=== PATIENT | female | born 1935 | race Caucasian/White ===

== ENCOUNTER 2017-07-31 07:36 | Outpatient (CLI) | payer MEDICARE, OTHER | END 2017-07-31 07:37 | disposition home or self-care (01) | LOC: BICMAMMO 07:36 | PROVIDERS: ATTEND Internal Medicine | DX: Z12.31 Encounter for screening mammogram for malignant neoplasm of breast (principal) | CPT/HCPCS: 77063; G0202; 77067 ==

== ENCOUNTER 2017-12-24 13:35 | Outpatient (CLI) | payer MEDICARE, OTHER | END 2017-12-24 13:36 | disposition home or self-care (01) | LOC: BICULT 13:35 | PROVIDERS: ATTEND Internal Medicine | DX: N18.3 Chronic kidney disease, stage 3 (moderate) (principal); N20.0 Calculus of kidney | CPT/HCPCS: 76770 ==

== ENCOUNTER 2018-12-18 13:51 | Outpatient (CLI) | payer MEDICARE, OTHER ==
--- NOTE | 2018-12-18 15:09 | MMO ---
Bilateral MAMMO Bilat Screen [facility]. CLINICAL HISTORY: Patient is 83 years old and is seen for screening. The patient has the following family history of breast cancer: maternal aunt, at age 70. The patient has no personal history of cancer. The patient has a history of left Stereotatic Biopsy in November, - benign. VIEWS: The views performed were: bilateral craniocaudal with tomosynthesis; bilateral mediolateral oblique with tomosynthesis; and left mediolateral oblique. FILMS COMPARED: The present examination has been compared to prior imaging studies performed at [place] on 06/29/2016 and 07/31/2017. MAMMOGRAM FINDINGS: There are scattered fibroglandular densities. Finding 1: There are stable benign appearing calcifications seen in both breasts. Finding 2: There is a biopsy clip seen in the left breast. There are no suspicious masses, suspicious calcifications, or new areas of architectural distortion. IMPRESSION: THERE IS NO MAMMOGRAPHIC EVIDENCE OF MALIGNANCY. A ROUTINE FOLLOW-UP MAMMOGRAM IN 1 YEAR IS RECOMMENDED. THE RESULTS OF THIS EXAM WERE SENT TO THE PATIENT. ACR BI-RADS Category 2 - Benign finding MAMMOGRAPHY NOTE: 1. A negative mammogram report should not delay a biopsy if a dominant of clinically suspicious mass is present. 2. Approximately 10% to 15% of breast cancers are not detected by mammography. 3. Adenosis and dense breasts may obscure an underlying neoplasm.
--- NOTE | 2018-12-18 15:22 | BD ---
BONE DENSITOMETRY USING DEXA: HISTORY: Postmenopausal screening for osteoporosis. FINDINGS: Lumbar Spine: BMD (g/cm2) L1 1.188 T-Score: 1.8 Z-Score: 4.3 L2 1.259 T-Score: 2.1 Z-Score: 4.8 L3 1.389 T-Score: 2.8 Z-Score: 5.7 L4 1.335 T-Score: 2.5 Z-Score: 5.5 L1-L4 1.300 T-Score: 2.3 Z-Score: 5.1 Femoral Neck: 0.832 T-Score: -0.2 Z-Score: 2.3 Total Femur: 1.018 T-Score: 0.6 Z-Score: 2.8 Impression: Normal bone mineral density. No evidence of osteopenia/osteoporosis. POS: [facility]
== END 2018-12-18 13:52 | disposition home or self-care (01) ==
LOC: BICMAMMO 13:51
PROVIDERS: ATTEND Internal Medicine
DX: Z12.31 Encounter for screening mammogram for malignant neoplasm of breast (principal); Z78.0 Asymptomatic menopausal state; Z80.3 Family history of malignant neoplasm of breast
CPT/HCPCS: 77063; 77067; 77080

== ENCOUNTER 2020-06-09 14:02 | Outpatient (CLI) | payer MEDICARE, OTHER ==
--- NOTE | 2020-06-09 14:27 | MMO ---
Bilateral MAMMO Bilat Screen [facility]. CLINICAL HISTORY: Patient is 85 years old and is seen for screening. The patient has the following family history of breast cancer: maternal aunt, at age 70. The patient has no personal history of cancer. The patient has a history of left Stereotatic Biopsy in November, - benign. VIEWS: The views performed were: bilateral craniocaudal with tomosynthesis and bilateral mediolateral oblique with tomosynthesis. FILMS COMPARED: The present examination has been compared to prior imaging studies performed at 06/29/2016, 07/31/2017 and 12/18/2018. This study has been interpreted with the assistance of computer-aided detection. MAMMOGRAM FINDINGS: There are scattered fibroglandular densities. Finding 1: There are stable benign appearing calcifications seen in both breasts. Finding 2: There is a biopsy clip seen in the left breast. There are no suspicious masses, suspicious calcifications, or new areas of architectural distortion. IMPRESSION: THERE IS NO MAMMOGRAPHIC EVIDENCE OF MALIGNANCY. A ROUTINE FOLLOW-UP MAMMOGRAM IN 1 YEAR IS RECOMMENDED. THE RESULTS OF THIS EXAM WERE SENT TO THE PATIENT. ACR BI-RADS Category 2 - Benign finding MAMMOGRAPHY NOTE: 1. A negative mammogram report should not delay a biopsy if a dominant of clinically suspicious mass is present. 2. Approximately 10% to 15% of breast cancers are not detected by mammography. 3. Adenosis and dense breasts may obscure an underlying neoplasm. Reported by: COCO HUTSON MD Electonically Signed: [id number]
== END 2020-06-09 14:03 | disposition home or self-care (01) ==
LOC: BICMAMMO 14:02
PROVIDERS: ATTEND Internal Medicine
DX: Z12.31 Encounter for screening mammogram for malignant neoplasm of breast (principal); Z80.3 Family history of malignant neoplasm of breast; Z91.89 Other specified personal risk factors, not elsewhere classified
CPT/HCPCS: 77063; 77067

== ENCOUNTER 2020-11-22 09:32 | Outpatient (CLI) | payer MEDICARE ==
[~2020-11-22 09:32] MED LIST: Iopamidol-370 76% 500 ML 1 ML ONE
== END 2020-11-22 09:33 | disposition home or self-care (01) ==
LOC: BICCT 09:32
PROVIDERS: ATTEND Physician Assistant Medical
DX: R10.30 Lower abdominal pain, unspecified (principal); R11.0 Nausea; N28.9 Disorder of kidney and ureter, unspecified
CPT/HCPCS: 74177; 82565; Q9967

== ENCOUNTER 2020-12-05 10:01 | Outpatient (CLI) | payer MEDICARE ==
[2020-12-05] MEDS ORDERED: Iopamidol-370 76% 500 ML 1 ML ONE (13:03)
== END 2020-12-05 10:02 | disposition home or self-care (01) ==
LOC: BICCT 10:01
PROVIDERS: ATTEND Urology
DX: N28.89 Other specified disorders of kidney and ureter (principal); R91.8 Other nonspecific abnormal finding of lung field
CPT/HCPCS: 71046; 74170; Q9967

== ENCOUNTER 2021-01-02 13:58 | Outpatient (CLI) | payer MEDICARE ==
[~2021-01-02 13:58] MED LIST changes: +Iopamidol 370 76% 100 ML VIAL ONE; -Iopamidol-370 76% 500 ML 1 ML ONE
== END 2021-01-02 13:59 | disposition home or self-care (01) ==
LOC: BICCT 13:58
PROVIDERS: ATTEND Urology
DX: R91.1 Solitary pulmonary nodule (principal); N28.89 Other specified disorders of kidney and ureter; R91.8 Other nonspecific abnormal finding of lung field; J84.10 Pulmonary fibrosis, unspecified
CPT/HCPCS: 71260; Q9967

== ENCOUNTER 2021-01-02 14:00 | Outpatient (CLI) | payer MEDICARE | END 2021-01-02 14:01 | disposition home or self-care (01) | LOC: BICMAMMO 14:00 | PROVIDERS: ATTEND Urology | DX: Z13.820 Encounter for screening for osteoporosis (principal); N28.89 Other specified disorders of kidney and ureter | CPT/HCPCS: 77080 ==

== ENCOUNTER 2021-02-06 10:33 | Outpatient (CLI) | payer MEDICARE | END 2021-02-06 10:34 | disposition home or self-care (01) | LOC: NM 10:33 | PROVIDERS: ATTEND Urology | DX: N28.89 Other specified disorders of kidney and ureter (principal) | CPT/HCPCS: 78306; A9503 ==

== ENCOUNTER 2021-06-13 18:37 | Emergency (ER) | payer MEDICARE ==
[2021-06-13 19:31] LABS: #Eosinphils 0.3 thou/uL (0.0-0.7); #Lymphocytes 1.8 thou/uL (1.20-3.40); #Monocytes 0.9 thou/uL (0.11-0.59); #Neutrophils 4.3 thou/uL (1.40-6.50); %Basophils 0.7 % (0.0-1.0); %Eosinophils 3.4 % (0.0-10.0); %Lymphocytes 24.6 % (21.0-51.0); %Monocytes 12.3 % (0.0-10.0); %Neutrophils 59.1 % (42.0-75.0); Hemoglobin 13.7 g/dL (12.0-16.0); Mean Corpuscular HGB CONC 34.8 g/dL (32.0-36.0); Mean Corpuscular Volume 97.5 fL (78.0-98.0); Mean Platelet Volume 8.1 fL (7.4-10.4); Platelet Count 233 thou/uL (130-400); Red Blood Cell (RBC) Count 4.03 mill/uL (4.20-5.40); White Blood Cell (WBC) Count 7.4 thou/uL (4.8-10.8)
[2021-06-13] MEDS ORDERED: hydrALAZINE 20 MG/ML VIAL ONE (19:32)
[2021-06-13 19:49] LABS: Bilirubin Negative (Negative); Blood, Urine Negative (Negative); Clarity Clear (Clear); Glucose, Urine (Dipstick) Normal (Negative); Ketone, Urine Negative (Negative); Leukocyte Negative Leu/uL (Negative); Nitrite Negative (Negative); Protein, Urine (Dipstick) Negative (Neg-Trace); Specific Gravity, Urine 1.007 (1.002-1.036); Urobilinogen Normal mg/dL (Less than 2)
[2021-06-13 19:58] LABS: ALT (SGPT) 19 U/L (8-55); AST (SGOT) 22 U/L (5-34); Albumin 4.1 g/dL (3.4-4.8); Alkaline Phosphatase 103 U/L (40-110); Anion Gap 16 mmol/L (10-20); BUN (Urea Nitrogen) 23 mg/dL (9.8-20.1); Bilirubin, Total 0.4 mg/dL (0.2-1.2); Calc. Creatinine Clearance 0 mL/min (70-130); Calcium 9.3 mg/dL (7.8-10.44); Carbon Dioxide 21 mmol/L (23-31); Chloride 100 mmol/L (98-107); Globulin 3.1 g/dL (2.4-3.5); Glucose 108 mg/dL (83-110); Potassium 4.2 mmol/L (3.5-5.1); Protein, Total 7.2 g/dL (5.8-8.1); Sodium 133 mmol/L (136-145)
== END 2021-06-13 22:58 | disposition home or self-care (01) ==
LOC: ERS 18:37
DX: I10 Essential (primary) hypertension (principal); I47.1 Supraventricular tachycardia; Z79.899 Other long term (current) drug therapy
CPT/HCPCS: 36415; 71045; 80053; 81003; 83880; 84484; 85025; 93005; 94760; 96374; J0360

== ENCOUNTER 2021-08-28 12:23 | Outpatient (CLI) | payer MEDICARE | END 2021-08-28 12:24 | disposition home or self-care (01) | LOC: BICCT 12:23 | PROVIDERS: ATTEND Urology | DX: N28.89 Other specified disorders of kidney and ureter (principal) | CPT/HCPCS: 74170; 82565 ==

== ENCOUNTER 2021-09-04 10:42 | Outpatient (CLI) | payer MEDICARE | END 2021-09-04 10:43 | disposition home or self-care (01) | LOC: LABBT 10:42 | PROVIDERS: ATTEND Urology | DX: Z01.818 Encounter for other preprocedural examination (principal); I12.9 Hypertensive chronic kidney disease with stage 1 through stage 4 chronic kidney disease, or unspecified chronic kidney disease; N18.31 Chronic kidney disease, stage 3a; N28.89 Other specified disorders of kidney and ureter; R54 Age-related physical debility; R41.3 Other amnesia; H81.03 Meniere's disease, bilateral; Z20.822 Contact with and (suspected) exposure to COVID-19 | CPT/HCPCS: 71046; 80048; 81001; 85027; 85610; 85730; 86850; 86900; 86901; 87086; 93005; U0003; U0005; 93010 ==

== ENCOUNTER 2021-09-07 05:58 | Observation (INO) | payer MEDICARE ==
[2021-08-30 12:24] VITALS: BMI 26.6
[2021-09-04 13:33] LABS: Bilirubin Neg (Negative); Blood, Urine Negative (Negative); Clarity Clear (Clear); Glucose, Urine (Dipstick) Normal (Negative); Ketone, Urine Negative (Negative); Leukocyte Negative (Negative); Nitrite Negative (Negative); Protein, Urine (Dipstick) Negative (Neg-Trace); Specific Gravity, Urine 1.005 (1.002-1.036); Urobilinogen Normal mg/dL (Less than 2)
[2021-09-04 13:38] LABS: Hemoglobin 13.6 g/dL (12.0-15.5); Mean Corpuscular HGB CONC 32.3 g/dL (32.0-36.0); Mean Corpuscular Hemoglobin 31.3 pg (27.0-33.0); Mean Corpuscular Volume 96.8 fl (81.6-98.3); Mean Platelet Volume 11.4 fl (7.4-10.4); Platelet Count 265 10x3/uL (150-450); RBC Distribution Width 12.4 % (11.5-14.5); Red Blood Cell (RBC) Count 4.35 10x6/uL (3.90-5.03); White Blood Cell (WBC) Count 6.5 10x3/uL (3.5-10.5)
[2021-09-04 13:51] LABS: PTT 27.1 sec (22.0-33.0); Prothrombin Time 10.9 sec (9.5-12.1)
[2021-09-04 13:56] LABS: Bacteria/HPF 2+ HPF (None Seen); RBC/HPF None Seen HPF (0-3); Squamous Epithelial 0-3 HPF (0-3)
[2021-09-04 13:57] LABS: WBC/HPF 0-3 HPF (0-3)
[2021-09-04 14:12] LABS: Chloride 98 mmol/L (98-107); Potassium 4.5 mmol/L (3.5-5.1); Sodium 133 mmol/L (136-145)
[2021-09-04 14:31] LABS: Anion Gap 14 mmol/L (10-20); BUN (Urea Nitrogen) 20 mg/dL (9.8-20.1); Calc. Creatinine Clearance 0 mL/min (70-130); Calcium 9.3 mg/dL (7.8-10.44); Carbon Dioxide 25 mmol/L (23-31); Glucose 78 mg/dL (83-110)
[2021-09-05 08:58] LABS: SARS-CoV-2 PCR by NAA Not Detected (NotDetected)
[2021-09-07] MEDS ORDERED: EPINEPHrine 1 MG/ML AMP ONE (06:40)
[2021-09-07] MEDS ORDERED: Bupivacaine 0.25% HCL 30 ML VIAL ONE (06:40)
[2021-09-07] MEDS ORDERED: Fentanyl 100 MCG/2 ML VIAL ONE ×3 (07:08→11:12)
[2021-09-07] MEDS ORDERED: HYDROmorphone 0.5 MG/0.5 ML SYRINGE ONE (07:09)
[2021-09-07] MEDS ORDERED: Lidocaine 1% MPF 2 ML VIAL ONE (07:16)
[2021-09-07] MEDS ORDERED: Ketamine 50 MG/ML (10ML VIAL) ONE (07:24)
[2021-09-07] MEDS ORDERED: Phenylephrine 10 MG/ML VIAL ONE (07:24)
[2021-09-07] MEDS ORDERED: CEFAZOLIN 1 GM VIAL ONE (07:26)
[2021-09-07] MEDS ORDERED: SUGAMMADEX SODIUM 200 MG/2 ML VIAL ONE (07:31)
[2021-09-07] MEDS ORDERED: Dexamethasone 20 MG/5 ML VIAL ONE (07:40)
[2021-09-07] MEDS ORDERED: Glycopyrrolate 0.2 MG/ML 5 ML SYRINGE ONE (07:40)
[2021-09-07] MEDS ORDERED: Ondansetron PF 4 MG/2 ML Vial ONE (07:40)
[2021-09-07] MEDS ORDERED: PROPOFOL 200 MG/20 ML VIAL ONE (07:40)
[2021-09-07] MEDS ORDERED: Rocuronium Bromide 10 MG/ML (10ML VIAL) ONE (07:40)
[2021-09-07] MEDS ORDERED: Lidocaine 1% PF 5 ML VIAL ONE (07:40)
[2021-09-07] MEDS ORDERED: HYDROcodone/Acetaminophen 5/325 mg Tablet PO PRN (10:24)
[2021-09-07] MEDS ORDERED: Morphine 4 MG/ML VIAL SLOW IVP PRN ×2 (10:24→12:19)
[2021-09-07] MEDS ORDERED: diphenhydrAMINE 25 MG CAP PO PRN (10:24)
[2021-09-07] MEDS ORDERED: Ondansetron PF 4 MG/2 ML Vial IVP PRN (10:24)
[2021-09-07] MEDS ORDERED: hydrALAZINE 20 MG/ML VIAL SLOW IVP PRN (10:24)
[2021-09-07] MEDS ORDERED: Bisacodyl 10 MG SUPP PR PRN (10:24)
[2021-09-07] MEDS ORDERED: Acetaminophen 500 MG TAB PO PRN (10:24)
[2021-09-07] MEDS ORDERED: Dicyclomine 10 MG CAP PO PRN (10:27)
[2021-09-07] MEDS ORDERED: Sodium Chloride 0.9% 1,000 ML IV SCH (10:30)
[2021-09-07] MEDS ORDERED: Promethazine HCl 25 MG/ML VIAL IVPB PRN (10:49)
[2021-09-07] MEDS ORDERED: Promethazine HCl 25 MG/ML VIAL IM PRN (10:49)
[2021-09-07] MEDS ORDERED: Ondansetron HCl/PF 4 MG/2 ML Vial IVP PRN (10:49)
[2021-09-07] MEDS ORDERED: HYDROmorphone 2 MG/ML VIAL SLOW IVP PRN (10:54)
[2021-09-07] MEDS: Dronedarone HCl 400 MG TAB PO SCH (17:00)
[2021-09-07] MEDS: ceFAZolin 1 GM/D5W 1 GM in Premix Bag 1 BAG IVPB SCH (19:03)
[2021-09-07] MEDS: Carvedilol 6.25 MG TAB PO SCH (21:00)
[2021-09-07] MEDS: hydrALAZINE 10 MG TAB PO SCH (21:03)
[2021-09-07] MEDS: Docusate 100 MG CAP PO SCH (21:04)
[2021-09-08] MEDS: ceFAZolin 1 GM/D5W 1 GM in Premix Bag 1 BAG IVPB SCH ×2 (00:34→10:51)
[2021-09-08] MEDS: HYDROcodone/Acetaminophen 5/325 mg Tablet PO PRN ×3 (00:39→20:15)
[2021-09-08] MEDS: Levothyroxine Sodium 112 MCG TAB PO SCH (05:40)
[2021-09-08 08:20] LABS: Hemoglobin 11.9 g/dL (12.0-16.0); Mean Corpuscular HGB CONC 33.6 g/dL (32.0-36.0); Mean Corpuscular Hemoglobin 32.9 pg (27.0-31.0); Mean Corpuscular Volume 97.9 fL (78.0-98.0); Mean Platelet Volume 8.2 fL (7.4-10.4); Platelet Count 196 thou/uL (130-400); RBC Distribution Width 11.7 % (11.5-14.5); Red Blood Cell (RBC) Count 3.63 mill/uL (4.20-5.40); White Blood Cell (WBC) Count 15.7 thou/uL (4.8-10.8)
[2021-09-08 08:42] LABS: Anion Gap 16 mmol/L (10-20); BUN (Urea Nitrogen) 20 mg/dL (9.8-20.1); Calc. Creatinine Clearance 38 mL/min (70-130); Calcium 8.3 mg/dL (7.8-10.44); Carbon Dioxide 19 mmol/L (23-31); Chloride 97 mmol/L (98-107); Glucose 104 mg/dL (83-110); Potassium 4.6 mmol/L (3.5-5.1); Sodium 127 mmol/L (136-145)
[2021-09-08] MEDS: Carvedilol 6.25 MG TAB PO SCH ×2 (09:05→18:23)
[2021-09-08] MEDS: Docusate 100 MG CAP PO SCH ×2 (09:07→18:23)
[2021-09-08] MEDS: hydrALAZINE 10 MG TAB PO SCH ×2 (09:07→18:24)
[2021-09-08] MEDS: Dronedarone HCl 400 MG TAB PO SCH ×2 (09:07→18:23)
[2021-09-08] MEDS ORDERED: CEFAZOLIN 1 GM in Sodium Chloride 0.9% 100 ML IVPB SCH (09:30)
[2021-09-08] MEDS ORDERED: ceFAZolin 1 GM/D5W 1 GM in Premix Bag 1 BAG IVPB SCH (10:00)
[2021-09-08 10:20] LABS: Band 22 % (5-11); Lymphocytes 8 % (21-51); MDiff Complete? YES; Monocytes 11 % (0-10); Neutrophil 58 % (42-75); Reactive Lymphocytes 1 % (0-10)
[2021-09-08] MEDS: IRBESARTAN 300 MG PO SCH ×2 (22:05→22:25)
[2021-09-09] MEDS: HYDROcodone/Acetaminophen 5/325 mg Tablet PO PRN ×2 (00:13→04:00)
[2021-09-09] MEDS: Levothyroxine Sodium 112 MCG TAB PO SCH (04:00)
[2021-09-09] MEDS: Carvedilol 6.25 MG TAB PO SCH (08:25)
[2021-09-09] MEDS: Dronedarone HCl 400 MG TAB PO SCH (08:25)
[2021-09-09] MEDS: Docusate 100 MG CAP PO SCH (08:30)
[2021-09-09] MEDS: hydrALAZINE 10 MG TAB PO SCH (08:50)
[2021-09-09 12:12] VITALS: BP 161/74; TEMP 98.2
== END 2021-09-09 14:20 | disposition home or self-care (01) ==
LOC: SDC 05:58 → SJJU 10:30
PROVIDERS: ADMIT Urology; ATTEND Urology
PROC: 0T5 Urinary System, Destruction (ICD-10-PCS; principal; 2021-09-07)
DX: D49.511 Neoplasm of unspecified behavior of right kidney (principal); M19.90 Unspecified osteoarthritis, unspecified site; N18.9 Chronic kidney disease, unspecified; Z79.899 Other long term (current) drug therapy; Z88.1 Allergy status to other antibiotic agents; Z88.5 Allergy status to narcotic agent; Z88.6 Allergy status to analgesic agent; Z88.8 Allergy status to other drugs, medicaments and biological substances; Z20.822 Contact with and (suspected) exposure to COVID-19
CPT/HCPCS: 50542; 71045; 80048 ×2; 81001; 85025; 85027; 85610; 85730; 86850; 86900; 86901; 87086; 96365; 96376 ×2; C1713; C2613; G0378 ×3; U0003; U0005; 36415; 88305; J0171; J0690; J1100; J1170; J1642; J2370; J2405; J2704; J3010; J7050; S0020

== ENCOUNTER 2022-03-13 10:20 | Outpatient (CLI) | payer OTHER ==
[~2022-03-13 10:20] MED LIST changes: -Iopamidol 370 76% 100 ML VIAL ONE; +Iopamidol-370 76% 500 ML 1 ML ONE
== END 2022-03-13 10:21 | disposition home or self-care (01) ==
LOC: BICCT 10:20
PROVIDERS: ATTEND Urology
DX: C64.1 Malignant neoplasm of right kidney, except renal pelvis (principal)
CPT/HCPCS: 71046; 74170; Q9967

== ENCOUNTER 2022-09-20 23:29 | Inpatient (IN) | payer OTHER ==
[2022-09-21] MEDS ORDERED: cefTRIAXone\\ROCEPHIN 1 GM VIAL ONE (00:33)
[2022-09-21] MEDS ORDERED: Dexamethasone 10 MG/ML VIAL ONE (00:33)
[2022-09-21] MEDS ORDERED: Ondansetron PF 4 MG/2 ML Vial ONE (00:52)
[2022-09-21 01:08] LABS: #Lymphocytes 1.5 thou/uL (1.20-3.40); #Monocytes 0.6 thou/uL (0.11-0.59); #Neutrophils 6.4 thou/uL (1.40-6.50); %Basophils 0.3 % (0.0-1.0); %Eosinophils 0.5 % (0.0-10.0); %Lymphocytes 17.3 % (21.0-51.0); %Monocytes 7.4 % (0.0-10.0); %Neutrophils 74.4 % (42.0-75.0); Hemoglobin 13.3 g/dL (12.0-16.0); Mean Corpuscular HGB CONC 34.8 g/dL (32.0-36.0); Mean Corpuscular Hemoglobin 33.5 pg (27.0-31.0); Mean Corpuscular Volume 96.1 fl (78.0-98.0); Mean Platelet Volume 8.6 fL (7.4-10.4); Platelet Count 219 10x3/uL (130-400); RBC Distribution Width 11.7 % (11.5-14.5); Red Blood Cell (RBC) Count 3.98 mill/uL (4.20-5.40); White Blood Cell (WBC) Count 8.6 10x3/uL (4.8-10.8)
[2022-09-21 01:20] LABS: PTT 33.2 sec (22.9-36.1); Prothrombin Time 13.3 sec (12.0-14.7)
[2022-09-21] MEDS ORDERED: Ipratropium/Albuterol 3 ML NEB ONE (01:23)
[2022-09-21 01:31] LABS: ALT (SGPT) 25 U/L (8-55); AST (SGOT) 25 U/L (5-34); Albumin 3.9 g/dL (3.4-4.8); Alkaline Phosphatase 86 U/L (40-110); Anion Gap 13 mmol/L (10-20); BUN (Urea Nitrogen) 22 mg/dL (9.8-20.1); Bilirubin, Total 0.7 mg/dL (0.2-1.2); Calc. Creatinine Clearance 0 mL/min (70-130); Calcium 8.3 mg/dL (7.8-10.44); Carbon Dioxide 20 mmol/L (23-31); Chloride 87 mmol/L (98-107); Estimated GFR 57; Globulin 2.8 g/dL (2.4-3.5); Glucose 147 mg/dL (83-110); Lipase 17 U/L (8-78); Magnesium 1.9 mg/dL (1.6-2.6); Potassium 3.9 mmol/L (3.5-5.1); Protein, Total 6.7 g/dL (5.8-8.1)
[2022-09-21 01:37] LABS: Sodium 116 mmol/L (136-145)
[2022-09-21] MEDS ORDERED: Acetaminophen 325 MG TAB PO PRN (02:15)
[2022-09-21] MEDS ORDERED: Ondansetron ODT 4 MG TAB SL PRN (02:15)
[2022-09-21] MEDS ORDERED: Sodium Chloride 0.9% 1,000 ML IV SCH (02:15)
[2022-09-21] MEDS ORDERED: Ondansetron PF 4 MG/2 ML Vial IVP PRN (02:15)
[2022-09-21] MEDS ORDERED: Benzonatate 100 MG CAP PO PRN (02:30)
[2022-09-21 02:35] LABS: Anion Gap 14 mmol/L (10-20); BUN (Urea Nitrogen) 21 mg/dL (9.8-20.1); Calc. Creatinine Clearance 0 mL/min (70-130); Calcium 8.1 mg/dL (7.8-10.44); Carbon Dioxide 17 mmol/L (23-31); Chloride 90 mmol/L (98-107); Estimated GFR 61; Glucose 135 mg/dL (83-110); Potassium 4.2 mmol/L (3.5-5.1)
[2022-09-21 02:38] LABS: Sodium 117 mmol/L (136-145)
[2022-09-21] MEDS ORDERED: Pharmacy to Dose REMDESIVIR IVPB PRN (02:46)
[2022-09-21] MEDS ORDERED: Furosemide 20 MG/2 ML VIAL SLOW IVP SCH ×3 (03:45→14:00)
[2022-09-21] MEDS ORDERED: Albuterol 200 PUFF (6.7GM INHALER) INH PRN (04:30)
[2022-09-21 04:31] LABS: Bacteria/HPF None Seen HPF (None Seen); Bilirubin Negative (Negative); Blood, Urine Negative (Negative); Clarity Clear (Clear); Glucose, Urine (Dipstick) Normal (Negative); Ketone, Urine Negative (Negative); Leukocyte Negative Leu/uL (Negative); Nitrite Negative (Negative); Protein, Urine (Dipstick) 30 mg/dL (Neg-Trace); RBC/HPF 0-3 HPF (0-3); Specific Gravity, Urine 1.023 (1.002-1.036); Squamous Epithelial None Seen HPF (0-3); Urobilinogen Normal mg/dL (Less than 2); WBC/HPF 0-3 HPF (0-3)
[2022-09-21 04:35] LABS: #Lymphocytes 1.1 thou/uL (1.20-3.40); #Monocytes 0.4 thou/uL (0.11-0.59); #Neutrophils 12.2 thou/uL (1.40-6.50); %Basophils 0.2 % (0.0-1.0); %Eosinophils 0.2 % (0.0-10.0); %Lymphocytes 7.8 % (21.0-51.0); %Monocytes 2.7 % (0.0-10.0); %Neutrophils 89.1 % (42.0-75.0); Hemoglobin 14.4 g/dL (12.0-16.0); Mean Corpuscular HGB CONC 33.8 g/dL (32.0-36.0); Mean Corpuscular Hemoglobin 32.6 pg (27.0-31.0); Mean Corpuscular Volume 96.5 fl (78.0-98.0); Mean Platelet Volume 8.5 fL (7.4-10.4); Platelet Count 244 10x3/uL (130-400); RBC Distribution Width 11.9 % (11.5-14.5); Red Blood Cell (RBC) Count 4.41 mill/uL (4.20-5.40); White Blood Cell (WBC) Count 13.7 10x3/uL (4.8-10.8)
[2022-09-21 04:56] LABS: Anion Gap 15 mmol/L (10-20); BUN (Urea Nitrogen) 19 mg/dL (9.8-20.1); Calc. Creatinine Clearance 47 mL/min (70-130); Calcium 8.5 mg/dL (7.8-10.44); Carbon Dioxide 19 mmol/L (23-31); Chloride 85 mmol/L (98-107); Estimated GFR 61; Glucose 169 mg/dL (83-110); Magnesium 1.8 mg/dL (1.6-2.6)
[2022-09-21] MEDS ORDERED: REMDESIVIR 200 MG in Sodium Chloride 0.9% 250 ML 210 ML IV SCH (05:00)
[2022-09-21] MEDS ORDERED: Ipratropium/Albuterol 3 ML NEB NEB SCH (05:00)
[2022-09-21 05:02] LABS: Sodium 115 mmol/L (136-145)
[2022-09-21] MEDS ORDERED: Dexamethasone 4 mg/ml Vial SLOW IVP SCH (09:00)
[2022-09-21 09:20] LABS: SARS-CoV-2 NAA Rapid Test DETECTED (NotDetected)
[2022-09-21 09:38] LABS: Free T4 (Free Thyroxine) 1.34 ng/dL (0.70-1.48)
[2022-09-21 09:46] LABS: Anion Gap 22 mmol/L (10-20); BUN (Urea Nitrogen) 18 mg/dL (9.8-20.1); Calc. Creatinine Clearance 49 mL/min (70-130); Calcium 8.4 mg/dL (7.8-10.44); Carbon Dioxide 14 mmol/L (23-31); Chloride 87 mmol/L (98-107); Estimated GFR 54; Glucose 129 mg/dL (83-110); Potassium 4.7 mmol/L (3.5-5.1); Sodium 118 mmol/L (136-145)
[2022-09-21] MEDS: Dronedarone HCl 400 MG TAB PO SCH ×2 (10:54→17:14)
[2022-09-21] MEDS: Zinc Sulfate 220 MG CAP PO SCH (10:54)
[2022-09-21] MEDS: Ascorbic Acid 500 mg Chewable Tablet PO SCH (10:54)
[2022-09-21] MEDS: guaiFENesin/DM ER PO SCH ×2 (10:55→20:10)
[2022-09-21] MEDS: Dexamethasone 10 MG/ML VIAL SLOW IVP SCH (12:48)
[2022-09-21 17:43] LABS: Anion Gap 16 mmol/L (10-20); BUN (Urea Nitrogen) 21 mg/dL (9.8-20.1); Calc. Creatinine Clearance 42 mL/min (70-130); Calcium 8.4 mg/dL (7.8-10.44); Carbon Dioxide 19 mmol/L (23-31); Chloride 86 mmol/L (98-107); Estimated GFR 45; Glucose 148 mg/dL (83-110); Potassium 4.3 mmol/L (3.5-5.1); Sodium 117 mmol/L (136-145)
[2022-09-21] MEDS: Doxycycline 100 MG CAP PO SCH (20:09)
[2022-09-22 01:05] LABS: Anion Gap 19 mmol/L (10-20); BUN (Urea Nitrogen) 28 mg/dL (9.8-20.1); Calc. Creatinine Clearance 40 mL/min (70-130); Calcium 8.7 mg/dL (7.8-10.44); Carbon Dioxide 17 mmol/L (23-31); Chloride 89 mmol/L (98-107); Estimated GFR 42; Glucose 146 mg/dL (83-110); Potassium 4.6 mmol/L (3.5-5.1); Sodium 120 mmol/L (136-145)
[2022-09-22] MEDS: Dexamethasone 10 MG/ML VIAL SLOW IVP SCH ×2 (01:42→12:48)
[2022-09-22] MEDS: cefTRIAXone\\ROCEPHIN 1 GM in Sodium Chloride 0.9% 100 ML IVPB SCH (01:42)
[2022-09-22 05:05] LABS: #Lymphocytes 1.2 thou/uL (1.20-3.40); #Monocytes 0.5 thou/uL (0.11-0.59); #Neutrophils 11.4 thou/uL (1.40-6.50); %Basophils 0.1 % (0.0-1.0); %Eosinophils 0.1 % (0.0-10.0); %Lymphocytes 9.2 % (21.0-51.0); %Monocytes 3.5 % (0.0-10.0); %Neutrophils 87.2 % (42.0-75.0); Hemoglobin 12.4 g/dL (12.0-16.0); Mean Corpuscular HGB CONC 34.1 g/dL (32.0-36.0); Mean Corpuscular Hemoglobin 32.7 pg (27.0-31.0); Mean Platelet Volume 8.3 fL (7.4-10.4); Platelet Count 201 10x3/uL (130-400); RBC Distribution Width 11.6 % (11.5-14.5); Red Blood Cell (RBC) Count 3.79 mill/uL (4.20-5.40)
[2022-09-22 06:02] LABS: Anion Gap 15 mmol/L (10-20); BUN (Urea Nitrogen) 27 mg/dL (9.8-20.1); Calc. Creatinine Clearance 46 mL/min (70-130); Calcium 8.4 mg/dL (7.8-10.44); Carbon Dioxide 21 mmol/L (23-31); Chloride 87 mmol/L (98-107); Estimated GFR 50; Glucose 144 mg/dL (83-110); Magnesium 1.8 mg/dL (1.6-2.6); Potassium 3.8 mmol/L (3.5-5.1)
[2022-09-22 06:09] LABS: Sodium 119 mmol/L (136-145)
[2022-09-22] MEDS: Levothyroxine Sodium 75 MCG TAB PO SCH (06:26)
[2022-09-22] MEDS: Zinc Sulfate 220 MG CAP PO SCH (08:33)
[2022-09-22] MEDS: Dronedarone HCl 400 MG TAB PO SCH ×2 (08:33→17:46)
[2022-09-22] MEDS: Ascorbic Acid 500 mg Chewable Tablet PO SCH (08:33)
[2022-09-22] MEDS: Doxycycline 100 MG CAP PO SCH ×2 (08:33→19:57)
[2022-09-22] MEDS: guaiFENesin/DM ER PO SCH ×2 (08:34→19:57)
[2022-09-22] MEDS ORDERED: Levothyroxine Sodium 112 MCG TAB PO SCH (09:00)
[2022-09-22] MEDS: REMDESIVIR 100 MG in Sodium Chloride 0.9% 250 ML 230 ML IV SCH (09:02)
[2022-09-22 09:54] LABS: Anion Gap 14 mmol/L (10-20); BUN (Urea Nitrogen) 27 mg/dL (9.8-20.1); Calc. Creatinine Clearance 45 mL/min (70-130); Calcium 8.7 mg/dL (7.8-10.44); Carbon Dioxide 25 mmol/L (23-31); Chloride 86 mmol/L (98-107); Estimated GFR 49; Glucose 142 mg/dL (83-110); Potassium 3.7 mmol/L (3.5-5.1); Sodium 121 mmol/L (136-145)
[2022-09-22 13:48] LABS: AST (SGOT) 29 U/L (5-34)
[2022-09-22 13:49] LABS: ALT (SGPT) 28 U/L (8-55)
[2022-09-22 17:34] LABS: Anion Gap 13 mmol/L (10-20); BUN (Urea Nitrogen) 32 mg/dL (9.8-20.1); Calc. Creatinine Clearance 45 mL/min (70-130); Calcium 8.2 mg/dL (7.8-10.44); Carbon Dioxide 25 mmol/L (23-31); Chloride 86 mmol/L (98-107); Estimated GFR 49; Glucose 137 mg/dL (83-110); Potassium 3.7 mmol/L (3.5-5.1); Sodium 120 mmol/L (136-145)
[2022-09-23] MEDS: cefTRIAXone\\ROCEPHIN 1 GM in Sodium Chloride 0.9% 100 ML IVPB SCH (01:16)
[2022-09-23] MEDS: Dexamethasone 10 MG/ML VIAL SLOW IVP SCH ×2 (01:16→12:13)
[2022-09-23] MEDS: Levothyroxine Sodium 75 MCG TAB PO SCH (05:50)
[2022-09-23 06:06] LABS: Anion Gap 15 mmol/L (10-20); BUN (Urea Nitrogen) 34 mg/dL (9.8-20.1); Calc. Creatinine Clearance 51 mL/min (70-130); Calcium 8.2 mg/dL (7.8-10.44); Carbon Dioxide 23 mmol/L (23-31); Chloride 87 mmol/L (98-107); Estimated GFR 58; Glucose 140 mg/dL (83-110); Magnesium 1.9 mg/dL (1.6-2.6); Potassium 3.7 mmol/L (3.5-5.1); Sodium 121 mmol/L (136-145)
[2022-09-23 06:08] LABS: ALT (SGPT) 37 U/L (8-55); AST (SGOT) 36 U/L (5-34)
[2022-09-23 06:55] LABS: Band 5 % (5-11); Lymphocytes 2 % (21-51); MDiff Complete? YES; Mean Corpuscular Hemoglobin 34.7 pg (27.0-31.0); Mean Corpuscular Volume 96.5 fl (78.0-98.0); Mean Platelet Volume 9.7 fL (7.4-10.4); Monocytes 12 % (0-10); Neutrophil 81 % (42-75); Platelet Count 155 10x3/uL (130-400); Platelet Morphology Comment Appears Adequate; RBC Distribution Width 11.9 % (11.5-14.5); RBC Morphology Normal; Red Blood Cell (RBC) Count 3.45 mill/uL (4.20-5.40); White Blood Cell (WBC) Count 15.8 10x3/uL (4.8-10.8)
[2022-09-23] MEDS: Dronedarone HCl 400 MG TAB PO SCH ×2 (08:33→16:12)
[2022-09-23] MEDS: Ascorbic Acid 500 mg Chewable Tablet PO SCH (08:33)
[2022-09-23] MEDS: REMDESIVIR 100 MG in Sodium Chloride 0.9% 250 ML 230 ML IV SCH (08:33)
[2022-09-23] MEDS: guaiFENesin/DM ER PO SCH ×2 (08:34→21:04)
[2022-09-23] MEDS: Zinc Sulfate 220 MG CAP PO SCH (08:34)
[2022-09-23] MEDS: Doxycycline 100 MG CAP PO SCH ×2 (08:34→21:04)
[2022-09-23 12:43] LABS: #Lymphocytes 0.9 thou/uL (1.20-3.40); #Monocytes 0.8 thou/uL (0.11-0.59); #Neutrophils 16.8 thou/uL (1.40-6.50); %Basophils 0.1 % (0.0-1.0); %Eosinophils 0.1 % (0.0-10.0); %Lymphocytes 4.8 % (21.0-51.0); %Monocytes 4.3 % (0.0-10.0); %Neutrophils 90.8 % (42.0-75.0); Hemoglobin 12.3 g/dL (12.0-16.0); Mean Corpuscular HGB CONC 33.7 g/dL (32.0-36.0); Mean Corpuscular Hemoglobin 32.3 pg (27.0-31.0); Mean Platelet Volume 8.2 fL (7.4-10.4); Platelet Count 228 10x3/uL (130-400); RBC Distribution Width 11.9 % (11.5-14.5); Red Blood Cell (RBC) Count 3.81 mill/uL (4.20-5.40); White Blood Cell (WBC) Count 18.5 10x3/uL (4.8-10.8)
[2022-09-23 13:00] LABS: Anion Gap 16 mmol/L (10-20); BUN (Urea Nitrogen) 33 mg/dL (9.8-20.1); Calc. Creatinine Clearance 48 mL/min (70-130); Calcium 8.3 mg/dL (7.8-10.44); Carbon Dioxide 21 mmol/L (23-31); Chloride 87 mmol/L (98-107); Estimated GFR 56; Glucose 141 mg/dL (83-110); Potassium 3.9 mmol/L (3.5-5.1); Sodium 120 mmol/L (136-145)
[2022-09-24] MEDS: cefTRIAXone\\ROCEPHIN 1 GM in Sodium Chloride 0.9% 100 ML IVPB SCH (02:02)
[2022-09-24] MEDS: Dexamethasone 10 MG/ML VIAL SLOW IVP SCH (02:02)
[2022-09-24 05:31] LABS: Anion Gap 13 mmol/L (10-20); BUN (Urea Nitrogen) 37 mg/dL (9.8-20.1); Calc. Creatinine Clearance 54 mL/min (70-130); Calcium 7.9 mg/dL (7.8-10.44); Carbon Dioxide 24 mmol/L (23-31); Chloride 90 mmol/L (98-107); Estimated GFR 64; Glucose 141 mg/dL (83-110); Potassium 3.5 mmol/L (3.5-5.1); Sodium 123 mmol/L (136-145)
[2022-09-24 05:32] LABS: ALT (SGPT) 40 U/L (8-55)
[2022-09-24 05:33] LABS: AST (SGOT) 25 U/L (5-34)
[2022-09-24] MEDS: Levothyroxine Sodium 75 MCG TAB PO SCH (05:47)
[2022-09-24] MEDS: Ascorbic Acid 500 mg Chewable Tablet PO SCH (08:48)
[2022-09-24] MEDS: Dronedarone HCl 400 MG TAB PO SCH ×2 (08:48→18:21)
[2022-09-24] MEDS: Doxycycline 100 MG CAP PO SCH ×2 (08:48→21:53)
[2022-09-24] MEDS: Zinc Sulfate 220 MG CAP PO SCH (08:48)
[2022-09-24] MEDS: REMDESIVIR 100 MG in Sodium Chloride 0.9% 250 ML 230 ML IV SCH (08:49)
[2022-09-24] MEDS: guaiFENesin/DM ER PO SCH (09:22)
[2022-09-25] MEDS: cefTRIAXone\\ROCEPHIN 1 GM in Sodium Chloride 0.9% 100 ML IVPB SCH (00:44)
[2022-09-25] MEDS: Levothyroxine Sodium 75 MCG TAB PO SCH (05:19)
[2022-09-25 05:26] LABS: #Lymphocytes 1.1 thou/uL (1.20-3.40); #Monocytes 1.1 thou/uL (0.11-0.59); #Neutrophils 13.7 thou/uL (1.40-6.50); %Basophils 0.1 % (0.0-1.0); %Eosinophils 0.1 % (0.0-10.0); %Lymphocytes 7.1 % (21.0-51.0); %Monocytes 7.1 % (0.0-10.0); %Neutrophils 85.6 % (42.0-75.0); Hemoglobin 13.3 g/dL (12.0-16.0); Mean Corpuscular HGB CONC 34.4 g/dL (32.0-36.0); Mean Corpuscular Hemoglobin 33.1 pg (27.0-31.0); Mean Platelet Volume 8.3 fL (7.4-10.4); Platelet Count 256 10x3/uL (130-400); RBC Distribution Width 11.7 % (11.5-14.5); Red Blood Cell (RBC) Count 4.03 mill/uL (4.20-5.40)
[2022-09-25 05:49] LABS: ALT (SGPT) 40 U/L (8-55); AST (SGOT) 20 U/L (5-34); Anion Gap 14 mmol/L (10-20); BUN (Urea Nitrogen) 35 mg/dL (9.8-20.1); Calc. Creatinine Clearance 54 mL/min (70-130); Calcium 8.5 mg/dL (7.8-10.44); Carbon Dioxide 24 mmol/L (23-31); Chloride 94 mmol/L (98-107); Estimated GFR 61; Glucose 128 mg/dL (83-110); Potassium 3.6 mmol/L (3.5-5.1); Sodium 128 mmol/L (136-145)
[2022-09-25] MEDS ORDERED: Dexamethasone 4 MG TAB PO SCH (08:00)
[2022-09-25] MEDS: REMDESIVIR 100 MG in Sodium Chloride 0.9% 250 ML 230 ML IV SCH (08:52)
[2022-09-25] MEDS: Dronedarone HCl 400 MG TAB PO SCH (08:53)
[2022-09-25] MEDS: Ascorbic Acid 500 mg Chewable Tablet PO SCH (08:55)
[2022-09-25] MEDS: Zinc Sulfate 220 MG CAP PO SCH (08:55)
[2022-09-25] MEDS: Doxycycline 100 MG CAP PO SCH (08:55)
[2022-09-25] MEDS ORDERED: hydrALAZINE 10 MG TAB PO SCH (10:00)
[2022-09-25] MEDS ORDERED: Carvedilol 6.25 MG TAB PO SCH (10:00)
[2022-09-25] MEDS ORDERED: Ondansetron PF 4 MG/2 ML Vial IVP PRN (11:30)
[2022-09-25 12:11] VITALS: TEMP 97.8
[2022-09-25 14:19] VITALS: BP 150/61
== END 2022-09-25 15:26 | disposition home or self-care (01) | DRG 177 ==
LOC: ERS 23:29 → NEURO 09-21 01:57
PROVIDERS: ADMIT Hospitalist; ATTEND Hospitalist
PROC: XW033E5 Introduction of Remdesivir Anti-infective into Peripheral Vein, Percutaneous Approach, New Technology Group 5 (ICD-10-PCS; principal; 2022-09-21)
PROC: 8E0ZXY6 Isolation (ICD-10-PCS; 2022-09-21)
DX: U07.1 COVID-19 (principal); J12.82 Pneumonia due to coronavirus disease 2019; J96.01 Acute respiratory failure with hypoxia; E22.2 Syndrome of inappropriate secretion of antidiuretic hormone; N17.9 Acute kidney failure, unspecified; N18.30 Chronic kidney disease, stage 3 unspecified; I12.9 Hypertensive chronic kidney disease with stage 1 through stage 4 chronic kidney disease, or unspecified chronic kidney disease; I48.91 Unspecified atrial fibrillation; E03.9 Hypothyroidism, unspecified; G25.0 Essential tremor; E87.8 Other disorders of electrolyte and fluid balance, not elsewhere classified; Z79.899 Other long term (current) drug therapy; Z88.1 Allergy status to other antibiotic agents; Z88.5 Allergy status to narcotic agent; Z88.8 Allergy status to other drugs, medicaments and biological substances; Z90.49 Acquired absence of other specified parts of digestive tract; Z90.710 Acquired absence of both cervix and uterus; Z98.49 Cataract extraction status, unspecified eye
CPT/HCPCS: 36415; 51701; 71045; 71275; 80048; 80053; 81003; 81015; 83605; 83690; 83735; 83880; 83930; 83935; 84145; 84300; 84439; 84443; 84450; 84460; 84481; 84484; 85025; 85610; 85652; 85730; 86140; 93005; 93306; 94640; 96374; 96375; J0248; J0696; J1100; J1650; J1940; J2405; J3490; J7050; J7620; J8540; U0002

== ENCOUNTER 2023-03-20 08:02 | Outpatient (CLI) | payer OTHER ==
[2023-03-20] MEDS ORDERED: Iopamidol-370 76% 500 ML MDV (1 ML CHARGE) ONE (08:44)
== END 2023-03-20 08:03 | disposition home or self-care (01) ==
LOC: BICCT 08:02
PROVIDERS: ATTEND Urology
DX: C64.1 Malignant neoplasm of right kidney, except renal pelvis (principal); Z90.49 Acquired absence of other specified parts of digestive tract; Z98.890 Other specified postprocedural states
CPT/HCPCS: 71046; 74170; Q9967

== ENCOUNTER 2025-01-01 18:51 | Emergency (ER) | payer OTHER | END 2025-01-01 19:08 | disposition home or self-care (01) | LOC: ERS 18:51 | DX: I10 Essential (primary) hypertension (principal) | CPT/HCPCS: 99282 ==

== ENCOUNTER 2025-04-24 14:57 | Emergency (ER) | payer OTHER ==
[2025-04-24 15:25] LABS: #Basophils Less than 0.03 10x3/uL (0.0-0.2); #Eosinophils 0.18 10x3/uL (0.0-0.7); #Monocytes 0.98 10x3/uL (0.11-0.59); #Neutrophils 4.05 10x3/uL (1.40-6.50); %Basophils 0.3 % (0.0-1.0); %Eosinophils 2.7 % (0.0-10.0); %Lymphocytes 21.5 % (21.0-51.0); %Monocytes 14.6 % (0.0-10.0); %Neutrophils 60.6 % (42.0-75.0); Hematocrit 40.4 % (36.0-47.0); Hemoglobin 13.3 g/dL (12.0-16.0); Mean Corpuscular Hemoglobin 32.1 pg (27.0-31.0); Mean Corpuscular Volume 97.6 fL (78.0-98.0); Platelet Count 228 10x3/uL (130-400); Red Blood Cell (RBC) Count 4.14 mill/uL (4.20-5.40); White Blood Cell (WBC) Count 6.69 10x3/uL (4.8-10.8)
[2025-04-24 15:46] LABS: ALT (SGPT) 24 U/L (Less than 34); AST (SGOT) 33 U/L (11-34); Albumin 4.3 g/dL (3.1-4.5); Alkaline Phosphatase 83 U/L (40-110); Anion Gap 16 mmol/L (10-20); BUN (Urea Nitrogen) 32 mg/dL (9.8-20.1); Bilirubin, Total 0.4 mg/dL (0.3-1.2); Calc. Creatinine Clearance 0 mL/min (70-130); Calcium 9.2 mg/dL (7.8-10.44); Carbon Dioxide 25 mmol/L (23-31); Chloride 93 mmol/L (98-107); Globulin 2.5 g/dL (2.4-3.5); Glucose 99 mg/dL (83-110); Potassium 4.4 mmol/L (3.5-5.1); Sodium 130 mmol/L (136-145)
[2025-04-24] MEDS ORDERED: Acetaminophen 500 MG TAB ONE (17:13)
== END 2025-04-24 19:02 | disposition home or self-care (01) ==
LOC: ERS 14:57
DX: S00.83XA Contusion of other part of head, initial encounter (principal); E03.9 Hypothyroidism, unspecified; I12.9 Hypertensive chronic kidney disease with stage 1 through stage 4 chronic kidney disease, or unspecified chronic kidney disease; N18.30 Chronic kidney disease, stage 3 unspecified; Z79.899 Other long term (current) drug therapy; Z79.890 Hormone replacement therapy; W19.XXXA Unspecified fall, initial encounter; W22.8XXA Striking against or struck by other objects, initial encounter; Y92.009 Unspecified place in unspecified non-institutional (private) residence as the place of occurrence of the external cause
CPT/HCPCS: 70450; 70486; 72125; 80053; 85025; 93005